=== PATIENT | female | born 1960 | race Caucasian/White ===

== ENCOUNTER → 2017-08-02 | Outpatient (CLI) | payer OTHER ==
[~2017-08-02] MED LIST: LANTUS100 U/ML; LISINOPRIL20 MG; NOVOLOG100 U/ML; TOPROL XL200 MG
== END | disposition home or self-care (01) ==
LOC: TOM 13:28
DX: I63.9 Cerebral infarction, unspecified (principal); R51 Headache; I69.90 Unspecified sequelae of unspecified cerebrovascular disease

== ENCOUNTER 2017-11-22 10:18 | Outpatient (CLI) | payer OTHER | END 2017-11-22 10:28 | disposition home or self-care (01) | LOC: RAD 10:18 | DX: M43.12 Spondylolisthesis, cervical region (principal) ==

== ENCOUNTER 2017-11-22 10:49 | Outpatient (CLI) | payer OTHER | END 2017-11-22 11:05 | disposition home or self-care (01) | LOC: NUCLEAR 10:49 | DX: G45.8 Other transient cerebral ischemic attacks and related syndromes (principal) ==

== ENCOUNTER 2020-06-21 14:08 | Outpatient (CLI) | payer OTHER ==
[2020-06-22] MEDS ORDERED: [UNRECOGNIZED DRUG - OTHER] (10:52)
== END 2020-06-21 14:17 | disposition home or self-care (01) ==
LOC: MRI 14:08
PROVIDERS: ATTEND Psychiatry & Neurology Clinical Neurophysiology
DX: G93.89 Other specified disorders of brain (principal); I63.30 Cerebral infarction due to thrombosis of unspecified cerebral artery
CPT/HCPCS: 70551

== ENCOUNTER 2020-06-22 10:35 | Inpatient (IN) | payer OTHER ==
[~2020-06-22] VITALS: Ht 167.6 cm; Wt 136.1 kg
[2020-06-22] MEDS ORDERED: [UNRECOGNIZED DRUG - OTHER] (10:52)
--- NOTE | 2020-06-22 10:53 | NUR ---
PTE REFERIDA POR DRA THORNE PO0R DEBILIDAD SE PAIGE S/V Y SE UBIAC EN AREA DE OBSERVACION
[2020-06-30] MEDS ORDERED: AMLODIPINE BESYL5 MG PO (14:39)
[2020-06-30] MEDS ORDERED: LISINOPRIL20 MG PO (14:39)
[2020-06-30] MEDS ORDERED: PROTONIX40 MG PO (14:41)
[2020-06-30] MEDS ORDERED: FAMOTIDINE20 MG PO (14:44)
[2020-06-30] MEDS ORDERED: HUMALOG100 UNIT/1 SUBCUTANEO (14:45)
[2020-06-30] MEDS ORDERED: GABAPENTIN300 MG/6 M PO (14:47)
[2020-06-30] MEDS ORDERED: Lantus 1000 UNITS/10 SUBCUTANEO (14:48)
[2020-06-30] MEDS ORDERED: CLONAZEPAM0.5 MG PO (14:48)
[2020-06-30] MEDS ORDERED: TOPROL XL100 M1 PO (14:48)
[2020-06-30] MEDS ORDERED: HYDRALAZINE HCL50 MG PO (14:51)
== END 2020-06-30 17:54 | DRG 472 ==
LOC: ER 10:35 → MEDI 13:13
PROVIDERS: Neurological Surgery; ADMIT Internal Medicine; ATTEND Internal Medicine
PROC: 4A12X4Z Monitoring of Cardiac Electrical Activity, External Approach (ICD-10-PCS; 2020-06-22)
PROC: 0RB30ZZ Excision of Cervical Vertebral Disc, Open Approach (ICD-10-PCS; 2020-06-27)
PROC: 0RG10A0 Fusion of Cervical Vertebral Joint with Interbody Fusion Device, Anterior Approach, Anterior Column, Open Approach (ICD-10-PCS; principal; 2020-06-27 07:00)
DX: M50.01 Cervical disc disorder with myelopathy, high cervical region (principal); Z68.42 Body mass index [BMI] 45.0-49.9, adult; M62.81 Muscle weakness (generalized); T50.B95A Adverse effect of other viral vaccines, initial encounter; E11.65 Type 2 diabetes mellitus with hyperglycemia; E66.01 Morbid (severe) obesity due to excess calories; E78.5 Hyperlipidemia, unspecified; I10 Essential (primary) hypertension; Z79.4 Long term (current) use of insulin; Z20.822 Contact with and (suspected) exposure to COVID-19
CPT/HCPCS: 70545; 72141; 72157; 72158

== ENCOUNTER 2021-01-27 08:55 | Outpatient (CLI) | payer OTHER ==
[~2021-01-27 08:55] MED LIST changes: +AMLODIPINE BESYL5 MG PO; +CLONAZEPAM0.5 MG PO; +FAMOTIDINE20 MG PO; +GABAPENTIN300 MG/6 M PO; +HUMALOG100 UNIT/1 SUBCUTANEO; +HYDRALAZINE HCL50 MG PO; +LISINOPRIL20 MG PO; +Lantus 1000 UNITS/10 SUBCUTANEO; +PROTONIX40 MG PO; +TOPROL XL100 M1 PO; +[UNRECOGNIZED DRUG - OTHER]
== END 2021-01-27 08:56 | disposition home or self-care (01) ==
LOC: NUCLEAR 08:55
PROVIDERS: ATTEND Internal Medicine
DX: I65.29 Occlusion and stenosis of unspecified carotid artery (principal)

== ENCOUNTER → 2021-02-17 | Outpatient (CLI) | payer OTHER | END | disposition home or self-care (01) | LOC: RAD 09:11 | PROVIDERS: ATTEND Neurological Surgery | DX: M48.02 Spinal stenosis, cervical region (principal) ==

== ENCOUNTER 2021-02-24 09:57 | Outpatient (CLI) | payer OTHER | END 2021-02-24 09:58 | disposition home or self-care (01) | LOC: NUCLEAR 09:57 | PROVIDERS: ATTEND Internal Medicine | DX: I70.213 Atherosclerosis of native arteries of extremities with intermittent claudication, bilateral legs (principal) ==

== ENCOUNTER 2021-02-28 14:21 | Outpatient (CLI) | payer OTHER | END 2021-02-28 14:32 | disposition home or self-care (01) | LOC: MAMO-SONO 14:21 | PROVIDERS: ATTEND Internal Medicine | DX: N60.11 Diffuse cystic mastopathy of right breast (principal); N60.12 Diffuse cystic mastopathy of left breast ==